=== PATIENT | female | born 1990 | race Two or more races ===

== ENCOUNTER 2024-12-03 09:40 | Inpatient (IN) | payer SELFPAY ==
[~2024-12-03] VITALS: Ht 170.2 cm; Wt 90.9 kg
[2024-12-03 10:18] LABS: BASOPHILS % (AUTO) 0.6 % (0.0-2.0); EOSINOPHILS % (AUTO) 0.1 % (1.0-6.0); HEMATOCRIT 39.3 % (36-46); HEMOGLOBIN 12.4 g/dL (12.0-16.0); LYMPHOCYTES # (AUTO) 0.7 K/uL (1.0-4.8); LYMPHOCYTES % (AUTO) 3.5 % (22.0-44.0); MEAN CORPUSCULAR HEMOGLOBIN 22.9 pg (26.0-34.0); MEAN CORPUSCULAR HGB CONC 31.4 G/dL (31.0-37.0); MEAN CORPUSCULAR VOLUME 73 fL (80-100); MONOCYTES # (AUTO) 0.5 K/uL (0.1-1.0); MONOCYTES % (AUTO) 2.7 % (2.0-9.0); NEUTROPHILS # (AUTO) 18.2 K/uL (1.8-7.7); PLATELET COUNT (AUTO) 353 K/uL (150-450); RED BLOOD CELL COUNT(AUTO) 5.41 MIL/uL (4.00-5.20); RED CELL DISTRIBUTION WIDTH 18.7 % (11.5-14.5); WHITE BLOOD COUNT (AUTO) 19.6 K/uL (4.5-11.0)
[2024-12-03] MEDS: PROCHLORPERAZINE EDISYLATE 5 MG/ML 2 ML VIAL IVP ONE (10:19)
[2024-12-03] MEDS: KETOROLAC TROMETHAMINE 30 MG/ML VIAL IVP ONE (10:19)
[2024-12-03] MEDS: SODIUM CHLORIDE 0.9% 1,000 ML IV ONE (10:19)
[2024-12-03 10:21] LABS: NEUTROPHILS % (AUTO) 93.1 % (40.0-70.0)
[2024-12-03 10:30] LABS: ANION GAP 21 mmol/L (8-16); CALCIUM, TOTAL 9.4 mg/dL (8.8-10.5); CARBON DIOXIDE 18 mmol/L (22-29); CHLORIDE 103 mmol/L (98-107); CREATININE 0.92 mg/dL (0.60-1.30); GLOMERULAR FILTR. RATE CALC > 60 mL/min (>60); GLUCOSE,RANDOM 164 mg/dL (70-110); POTASSIUM 3.3 mmol/L (3.5-5.1); SODIUM SERUM 142 mmol/L (136-145); UREA NITROGEN, BLOOD 7 mg/dL (7-18)
[2024-12-03] MEDS: LORazepam 2 MG/ML VIAL IVP ONE ×2 (10:32→14:19)
[2024-12-03] MEDS: SUMAtriptan SUCCINATE 6 MG/0.5 ML VIAL SQ ONE (10:32)
[2024-12-03 10:48] LABS: ALCOHOL, URINE DRUG SCREEN NEGATIVE (NEGATIVE); AMPHET/METH SCREEN,URINE NEGATIVE (NEGATIVE); BARBITURATE SCREEN, URINE NEGATIVE (NEGATIVE); BENZODIAZEPINES SCREEN,URINE NEGATIVE (NEGATIVE); CANNABINOID SCREEN,URINE POSITIVE (NEGATIVE); COCAINE SCREEN,URINE NEGATIVE (NEGATIVE); METHADONE SCREEN, URINE NEGATIVE (NEGATIVE); OPIATE SCREEN,URINE NEGATIVE (NEGATIVE); PHENCYCLIDINE SCREEN,URINE NEGATIVE (NEGATIVE)
[2024-12-03 10:48] LABS: RBC MORPHOLOGY COMMENT ABNORMAL RBC MORPH
[2024-12-03] MEDS ORDERED: DICYCLOMINE HCL 10 MG/ML 2 ML VIAL IM ONE (11:15)
[2024-12-03] MEDS: DiphenhydrAMINE HCL 50 MG/ML VIAL IVP ONE (11:40)
[2024-12-03] MEDS: DICYCLOMINE HCL 10 MG/ML 2 ML VIAL IM ONE (11:40)
[2024-12-03 12:01] LABS: APPEARANCE,URINE CLEAR (CLEAR); BILIRUBIN,URINE NEGATIVE (NEGATIVE); COLOR,URINE LIGHT YELLOW (YELLOW); GLUCOSE, URINE (UA) NEGATIVE (NEGATIVE); KETONES,URINE =>150 mg/dL (NEGATIVE); LEUKOCYTE ESTERASE ,URINE NEGATIVE (NEGATIVE); NITRATE,URINE NEGATIVE (NEGATIVE); OCCULT BLOOD,URINE NEGATIVE (NEGATIVE); PH,URINE 6.5 (5.0-8.0); PROTEIN,URINE 30-70 mg/dL (NEGATIVE); SPECIFIC GRAVITIY, URINE 1.029 (1.003-1.030); UROBILINOGEN,URINE <=1.0 mg/dL (<=1.0)
[2024-12-03] MEDS: PROMETHAZINE HCL 25 MG RECTAL SUPPOSITORY PR ONE (12:08)
[2024-12-03] MEDS ORDERED: IOHEXOL 350 MG/ML 100 ML VIAL ONE (14:24)
[2024-12-03] MEDS ORDERED: SODIUM CHLORIDE 0.9% 100 ML ONE (14:25)
[2024-12-03] MEDS: POTASSIUM CHL 20 MEQ/0.9% NS 1,000 ML IV ONE (15:45)
[2024-12-03] MEDS ORDERED: POTASSIUM CHLORIDE 20 MEQ ER TABLET PO PRN (16:15)
[2024-12-03] MEDS ORDERED: POTASSIUM CHL 10 MEQ/WATER 50 ML IV PRN (16:15)
[2024-12-03] MEDS ORDERED: MAGNESIUM HYDROXIDE SUSPENSION 30 ML UDCUP PO PRN (16:15)
[2024-12-03] MEDS ORDERED: ACETAMINOPHEN 325 MG TABLET PO PRN (16:15)
[2024-12-03 18:00] VITALS: BP 149/82; PULSE 87; RESP 18; TEMP 98.6; O2SAT 100
[2024-12-03] MEDS: MORPHINE SULFATE 2 MG/ML SYRINGE IVP PRN (18:05)
[2024-12-03 20:20] VITALS: BP 127/57; PULSE 95; RESP 18; TEMP 97.7; O2SAT 96
[2024-12-03] MEDS: LORazepam 2 MG/ML VIAL IVP PRN (21:00)
[2024-12-03] MEDS: ONDANSETRON HCL 4 MG/2 ML VIAL IVP PRN (21:00)
[2024-12-04] MEDS: SODIUM CHLORIDE 0.9% 1,000 ML IV ONE (03:10)
[2024-12-04 03:15] VITALS: BP 139/90; PULSE 77; RESP 18; TEMP 97.9; O2SAT 100
[2024-12-04 08:09] VITALS: BP 117/74; PULSE 67; RESP 18; TEMP 98; O2SAT 100
[2024-12-04] MEDS: PANTOPRAZOLE SODIUM 40 MG/VIAL IVP SCH (08:42)
[2024-12-04 12:53] LABS: BASOPHILS % (AUTO) 0.6 % (0.0-2.0); EOSINOPHILS % (AUTO) 0 % (1.0-6.0); HEMATOCRIT 37.4 % (36-46); HEMOGLOBIN 11.8 g/dL (12.0-16.0); LYMPHOCYTES # (AUTO) 1.1 K/uL (1.0-4.8); LYMPHOCYTES % (AUTO) 6.1 % (22.0-44.0); MEAN CORPUSCULAR HEMOGLOBIN 23.2 pg (26.0-34.0); MEAN CORPUSCULAR HGB CONC 31.6 G/dL (31.0-37.0); MEAN CORPUSCULAR VOLUME 73 fL (80-100); MONOCYTES # (AUTO) 0.8 K/uL (0.1-1.0); MONOCYTES % (AUTO) 4.3 % (2.0-9.0); NEUTROPHILS # (AUTO) 15.4 K/uL (1.8-7.7); PLATELET COUNT (AUTO) 230 K/uL (150-450); RED CELL DISTRIBUTION WIDTH 18.9 % (11.5-14.5); WHITE BLOOD COUNT (AUTO) 17.4 K/uL (4.5-11.0)
[2024-12-04 13:10] LABS: RBC MORPHOLOGY COMMENT ABNORMAL RBC MORPH
[2024-12-04] MEDS ORDERED: ONDA-104 PO (14:29)
[2024-12-04 15:43] VITALS: BP 114/71; PULSE 85; RESP 18; TEMP 98.4; O2SAT 100
[2024-12-04] MEDS: RINGERS SOLUTION,LACTATED 1,000 ML IV SCH (19:20)
[2024-12-04 20:05] VITALS: BP 115/52; PULSE 63; RESP 18; TEMP 98.4; O2SAT 100
[2024-12-04] MEDS: POTASSIUM CHLORIDE 20 MEQ ER TABLET PO PRN (20:47)
[2024-12-04] MEDS: RINGERS SOLUTION,LACTATED 500 ML IV ONE (21:03)
[2024-12-04] MEDS: MORPHINE SULFATE 2 MG/ML SYRINGE IVP PRN (21:36)
[2024-12-05] MEDS: ZOLPIDEM TARTRATE 5 MG TABLET PO PRN (03:38)
[2024-12-05 03:43] VITALS: BP 133/99; PULSE 87; RESP 20; TEMP 97.8; O2SAT 99
[2024-12-05] MEDS: PROCHLORPERAZINE MALEATE 25 MG RECTAL SUPPOSITORY PR ONE (04:12)
[2024-12-05] MEDS: MORPHINE SULFATE 2 MG/ML SYRINGE IVP ONE (06:02)
[2024-12-05] MEDS: LORazepam 2 MG/ML VIAL IVP ONE (06:14)
[2024-12-05 08:00] VITALS: BP 119/59; PULSE 65; RESP 20; TEMP 98.4; O2SAT 100
[2024-12-05] MEDS ORDERED: SODIUM CHLORIDE 0.9% 250 ML IV ONE ×3 (10:32→14:59)
[2024-12-05] MEDS: POTASSIUM CHL 10 MEQ/WATER 50 ML IV PRN (11:01)
[2024-12-05] MEDS ORDERED: LORazepam 2 MG/ML VIAL IVP SCH (16:00)
[2024-12-05] MEDS ORDERED: PANTOPRAZOLE SODIUM 40 MG/VIAL IVP SCH (21:00)
== END 2024-12-05 15:25 | disposition left against medical advice (07) | DRG 103 ==
LOC: EMS 09:40 → EDH 16:04 → 4E 17:50
PROVIDERS: ADMIT Internal Medicine; ATTEND Internal Medicine
DX: G43.D1 Abdominal migraine, intractable (principal); K44.9 Diaphragmatic hernia without obstruction or gangrene; E66.9 Obesity, unspecified; F41.1 Generalized anxiety disorder; Z53.21 Procedure and treatment not carried out due to patient leaving prior to being seen by health care provider; K76.0 Fatty (change of) liver, not elsewhere classified; E87.6 Hypokalemia; D72.829 Elevated white blood cell count, unspecified; Z88.8 Allergy status to other drugs, medicaments and biological substances; Z68.31 Body mass index [BMI] 31.0-31.9, adult
CPT/HCPCS: 74018; 74177; 80048; 80307; 81003; 82009; 84132; 84703; 85025; 93005; 96361; 96365; 96372; 96375; 99285; G0378; J0500; J0780; J1200; J1885; J2060; J2270; J2405; J2470; J3030; J3480; J7030; J7050; J7120; 36415-L1; 36415-TC

== ENCOUNTER 2024-12-12 08:39 | Emergency (ER) | payer MEDICAID ==
[~2024-12-12] VITALS: Ht 170.2 cm; Wt 90.0 kg
[~2024-12-12 08:39] MED LIST: ONDA-104 PO
[2024-12-12 08:53] VITALS: TEMP 97.8
[2024-12-12] MEDS: ONDANSETRON HCL 4 MG/2 ML VIAL IVP ONE (09:11)
[2024-12-12] MEDS: LORazepam 2 MG/ML VIAL IVP ONE ×2 (09:11→13:54)
[2024-12-12] MEDS: KETOROLAC TROMETHAMINE 30 MG/ML VIAL IVP ONE (09:12)
[2024-12-12 09:21] LABS: BASOPHILS % (AUTO) 0.5 % (0.0-2.0); EOSINOPHILS % (AUTO) 0.2 % (1.0-6.0); HEMATOCRIT 40.9 % (36-46); HEMOGLOBIN 12.9 g/dL (12.0-16.0); LYMPHOCYTES # (AUTO) 1.1 K/uL (1.0-4.8); LYMPHOCYTES % (AUTO) 8.6 % (22.0-44.0); MEAN CORPUSCULAR HEMOGLOBIN 22.9 pg (26.0-34.0); MEAN CORPUSCULAR HGB CONC 31.5 G/dL (31.0-37.0); MEAN CORPUSCULAR VOLUME 73 fL (80-100); MONOCYTES # (AUTO) 0.3 K/uL (0.1-1.0); MONOCYTES % (AUTO) 2.4 % (2.0-9.0); NEUTROPHILS # (AUTO) 10.9 K/uL (1.8-7.7); PLATELET COUNT (AUTO) 338 K/uL (150-450); RED BLOOD CELL COUNT(AUTO) 5.63 MIL/uL (4.00-5.20); RED CELL DISTRIBUTION WIDTH 18.6 % (11.5-14.5); WHITE BLOOD COUNT (AUTO) 12.4 K/uL (4.5-11.0)
[2024-12-12 09:22] LABS: NEUTROPHILS % (AUTO) 88.3 % (40.0-70.0)
[2024-12-12 09:33] LABS: ANION GAP 15 mmol/L (8-16); CALCIUM, TOTAL 9.3 mg/dL (8.8-10.5); CARBON DIOXIDE 18 mmol/L (22-29); CHLORIDE 101 mmol/L (98-107); CREATININE 0.75 mg/dL (0.60-1.30); GLOMERULAR FILTR. RATE CALC > 60 mL/min (>60); POTASSIUM 3.8 mmol/L (3.5-5.1); SODIUM SERUM 134 mmol/L (136-145)
[2024-12-12 09:38] LABS: GLUCOSE,RANDOM 184 mg/dL (70-110); UREA NITROGEN, BLOOD 6 mg/dL (7-18)
[2024-12-12 09:53] LABS: RBC MORPHOLOGY COMMENT ABNORMAL RBC MORPH
[2024-12-12] MEDS: DiphenhydrAMINE HCL 50 MG/ML VIAL IVP ONE ×2 (10:01→13:54)
[2024-12-12] MEDS: HALOPERIDOL LACTATE 5 MG/ML VIAL IVP ONE (10:01)
[2024-12-12 11:39] LABS: COVID AG,FIA SOURCE NASAL SWAB
[2024-12-12 12:06] LABS: SARS-COV2 (COVID) ANTIGEN,FIA Negative (Negative)
[2024-12-12 12:26] LABS: APPEARANCE,URINE CLEAR (CLEAR); BILIRUBIN,URINE NEGATIVE (NEGATIVE); COLOR,URINE LIGHT YELLOW (YELLOW); GLUCOSE, URINE (UA) 150-200 mg/dL (NEGATIVE); KETONES,URINE 80-100 mg/dL (NEGATIVE); LEUKOCYTE ESTERASE ,URINE NEGATIVE (NEGATIVE); NITRATE,URINE NEGATIVE (NEGATIVE); OCCULT BLOOD,URINE NEGATIVE (NEGATIVE); PROTEIN,URINE 30-70 mg/dL (NEGATIVE); SPECIFIC GRAVITIY, URINE 1.026 (1.003-1.030); UROBILINOGEN,URINE <=1.0 mg/dL (<=1.0)
[2024-12-12 12:31] LABS: BACTERIA,URINE None Seen /HPF (None Seen)
[2024-12-12 12:32] LABS: RBC,URINE 0-2 /HPF (0-2); WBC,URINE 0-2 /HPF (0-5)
[2024-12-12 14:04] VITALS: BP 132/73; PULSE 97; RESP 18; O2SAT 95
[2024-12-12 15:39] LABS: ALCOHOL, URINE DRUG SCREEN NEGATIVE (NEGATIVE); AMPHET/METH SCREEN,URINE NEGATIVE (NEGATIVE); BARBITURATE SCREEN, URINE NEGATIVE (NEGATIVE); BENZODIAZEPINES SCREEN,URINE NEGATIVE (NEGATIVE); CANNABINOID SCREEN,URINE POSITIVE (NEGATIVE); COCAINE SCREEN,URINE NEGATIVE (NEGATIVE); METHADONE SCREEN, URINE NEGATIVE (NEGATIVE); OPIATE SCREEN,URINE NEGATIVE (NEGATIVE); PHENCYCLIDINE SCREEN,URINE NEGATIVE (NEGATIVE)
== END 2024-12-12 14:08 | disposition home or self-care (01) ==
LOC: EMS 08:46
DX: F12.10 Cannabis abuse, uncomplicated (principal); R11.2 Nausea with vomiting, unspecified; F41.9 Anxiety disorder, unspecified; Z72.89 Other problems related to lifestyle; Z20.822 Contact with and (suspected) exposure to COVID-19
CPT/HCPCS: 99285; 96374; 96375; 87426; 80048; 81001; 85025; 36415; 96376; 80307; J1885; J1200; J1630; J2060; J2405

== ENCOUNTER 2024-12-31 07:35 | Emergency (ER) | payer MEDICAID ==
[~2024-12-31] VITALS: Ht 170.2 cm; Wt 90.9 kg
[2024-12-31 07:38] VITALS: TEMP 97.5
[2024-12-31] MEDS: ONDANSETRON HCL 4 MG/2 ML VIAL IVP ONE (08:14)
[2024-12-31] MEDS: SODIUM CHLORIDE 0.9% 1,000 ML IV ONE (08:14)
[2024-12-31 08:23] LABS: BASOPHILS % (AUTO) 0.4 % (0.0-2.0); EOSINOPHILS % (AUTO) 1.4 % (1.0-6.0); HEMATOCRIT 41.3 % (36-46); LYMPHOCYTES # (AUTO) 1.7 K/uL (1.0-4.8); MEAN CORPUSCULAR HEMOGLOBIN 23.5 pg (26.0-34.0); MEAN CORPUSCULAR HGB CONC 31.6 G/dL (31.0-37.0); MEAN CORPUSCULAR VOLUME 75 fL (80-100); MONOCYTES # (AUTO) 0.5 K/uL (0.1-1.0); MONOCYTES % (AUTO) 3.1 % (2.0-9.0); NEUTROPHILS # (AUTO) 13.3 K/uL (1.8-7.7); NEUTROPHILS % (AUTO) 84.1 % (40.0-70.0); PLATELET COUNT (AUTO) 312 K/uL (150-450); RED BLOOD CELL COUNT(AUTO) 5.54 MIL/uL (4.00-5.20); WHITE BLOOD COUNT (AUTO) 15.7 K/uL (4.5-11.0)
[2024-12-31 08:29] LABS: ANION GAP 17 mmol/L (8-16); CALCIUM, TOTAL 9.3 mg/dL (8.8-10.5); CARBON DIOXIDE 20 mmol/L (22-29); CHLORIDE 100 mmol/L (98-107); CREATININE 0.78 mg/dL (0.60-1.30); GLOMERULAR FILTR. RATE CALC > 60 mL/min (>60); GLUCOSE,RANDOM 157 mg/dL (70-110); LIPASE 34 U/L (16-77); POTASSIUM 3.3 mmol/L (3.5-5.1); SODIUM SERUM 137 mmol/L (136-145); UREA NITROGEN, BLOOD 3 mg/dL (7-18)
[2024-12-31] MEDS: DiphenhydrAMINE HCL 50 MG/ML VIAL IVP ONE ×2 (08:49→09:50)
[2024-12-31] MEDS: LORazepam 2 MG/ML VIAL IVP ONE ×2 (08:49→09:12)
[2024-12-31] MEDS: HALOPERIDOL LACTATE 5 MG/ML VIAL IVP ONE ×2 (08:49→09:12)
[2024-12-31 09:01] LABS: RBC MORPHOLOGY COMMENT ABNORMAL RBC MORPH
[2024-12-31] MEDS: BENZTROPINE MESYLATE 2 MG TABLET PO ONE (09:48)
[2024-12-31 10:37] LABS: APPEARANCE,URINE HAZY (CLEAR); BILIRUBIN,URINE NEGATIVE (NEGATIVE); COLOR,URINE LIGHT YELLOW (YELLOW); GLUCOSE, URINE (UA) TRACE mg/dL (NEGATIVE); KETONES,URINE NEGATIVE (NEGATIVE); LEUKOCYTE ESTERASE ,URINE MODERATE (NEGATIVE); NITRATE,URINE NEGATIVE (NEGATIVE); OCCULT BLOOD,URINE NEGATIVE (NEGATIVE); PROTEIN,URINE 30-70 mg/dL (NEGATIVE); SPECIFIC GRAVITIY, URINE 1.015 (1.003-1.030); UROBILINOGEN,URINE <=1.0 mg/dL (<=1.0)
[2024-12-31] MEDS: POTASSIUM CHLORIDE 20 MEQ ER TABLET PO ONE (11:11)
[2024-12-31 12:16] LABS: RBC,URINE 0-2 /HPF (0-2)
[2024-12-31 12:17] LABS: BACTERIA,URINE Moderate /HPF (None Seen); SQUAMOUS EPITHELIAL CELL,UR Many /LPF (None Seen)
[2024-12-31] MEDS: KETOROLAC TROMETHAMINE 30 MG/ML VIAL IVP ONE (13:06)
[2024-12-31] MEDS ORDERED: LORA1TAB25 PO (14:44)
[2024-12-31 14:55] VITALS: BP 114/71; PULSE 79; RESP 14; O2SAT 100
== END 2024-12-31 15:35 | disposition home or self-care (01) ==
LOC: EMS 07:36
DX: F32.9 Major depressive disorder, single episode, unspecified (principal); G43.D1 Abdominal migraine, intractable; F41.9 Anxiety disorder, unspecified; F12.90 Cannabis use, unspecified, uncomplicated
CPT/HCPCS: 99285; 96374; 96375; 96361; 80048; 81001; 83690; 84703; 85025; 87086; 36415; 96376; J1885; J1200; J1630; J2060; J2405; J7030

== ENCOUNTER 2025-01-13 08:46 | Emergency (ER) | payer MEDICAID ==
[~2025-01-13] VITALS: Ht 165.1 cm; Wt 90.9 kg
[~2025-01-13 08:46] MED LIST changes: +LORA1TAB25 PO; -ONDA-104 PO
[2025-01-13] MEDS: LORazepam 2 MG/ML VIAL IVP ONE (09:30)
[2025-01-13] MEDS: SODIUM CHLORIDE 0.9% 1,000 ML IV ONE (09:30)
[2025-01-13] MEDS: ONDANSETRON HCL 4 MG/2 ML VIAL IVP ONE (09:30)
[2025-01-13 09:44] LABS: APPEARANCE,URINE HAZY (CLEAR); BILIRUBIN,URINE NEGATIVE (NEGATIVE); COLOR,URINE YELLOW (YELLOW); GLUCOSE, URINE (UA) TRACE mg/dL (NEGATIVE); KETONES,URINE 40-60 mg/dL (NEGATIVE); LEUKOCYTE ESTERASE ,URINE LARGE (NEGATIVE); NITRATE,URINE NEGATIVE (NEGATIVE); OCCULT BLOOD,URINE NEGATIVE (NEGATIVE); PROTEIN,URINE 30-70 mg/dL (NEGATIVE); SPECIFIC GRAVITIY, URINE 1.025 (1.003-1.030); UROBILINOGEN,URINE <=1.0 mg/dL (<=1.0)
[2025-01-13 09:51] LABS: ALCOHOL, URINE DRUG SCREEN NEGATIVE (NEGATIVE); AMPHET/METH SCREEN,URINE NEGATIVE (NEGATIVE); BARBITURATE SCREEN, URINE NEGATIVE (NEGATIVE); BENZODIAZEPINES SCREEN,URINE NEGATIVE (NEGATIVE); CANNABINOID SCREEN,URINE POSITIVE (NEGATIVE); COCAINE SCREEN,URINE NEGATIVE (NEGATIVE); METHADONE SCREEN, URINE NEGATIVE (NEGATIVE); OPIATE SCREEN,URINE NEGATIVE (NEGATIVE); PHENCYCLIDINE SCREEN,URINE NEGATIVE (NEGATIVE)
[2025-01-13 10:20] LABS: BACTERIA,URINE Moderate /HPF (None Seen); RBC,URINE None Seen /HPF (0-2); SQUAMOUS EPITHELIAL CELL,UR Many /LPF (None Seen)
[2025-01-13 11:05] LABS: ANION GAP 18 mmol/L (8-16); CALCIUM, TOTAL 9.1 mg/dL (8.8-10.5); CARBON DIOXIDE 19 mmol/L (22-29); CHLORIDE 101 mmol/L (98-107); CREATININE 0.89 mg/dL (0.60-1.30); GLOMERULAR FILTR. RATE CALC > 60 mL/min (>60); GLUCOSE,RANDOM 162 mg/dL (70-110); POTASSIUM 3.4 mmol/L (3.5-5.1); SODIUM SERUM 138 mmol/L (136-145); UREA NITROGEN, BLOOD 9 mg/dL (7-18)
[2025-01-13 11:07] LABS: ALBUMIN 3.7 g/dL (3.4-5.0); BASOPHILS % (AUTO) 0.2 % (0.0-2.0); BILIRUBIN,DIRECT 0.3 mg/dL (0.00-0.20); BILIRUBIN,TOTAL 1.5 mg/dL (0.1-1.0); EOSINOPHILS % (AUTO) 0 % (1.0-6.0); HEMATOCRIT 38.8 % (36-46); HEMOGLOBIN 12.6 g/dL (12.0-16.0); LYMPHOCYTES % (AUTO) 5.5 % (22.0-44.0); MEAN CORPUSCULAR HEMOGLOBIN 23.7 pg (26.0-34.0); MEAN CORPUSCULAR HGB CONC 32.5 G/dL (31.0-37.0); MEAN CORPUSCULAR VOLUME 73 fL (80-100); MONOCYTES # (AUTO) 0.4 K/uL (0.1-1.0); MONOCYTES % (AUTO) 2.4 % (2.0-9.0); NEUTROPHILS # (AUTO) 16.2 K/uL (1.8-7.7); PLATELET COUNT (AUTO) 337 K/uL (150-450); RED BLOOD CELL COUNT(AUTO) 5.33 MIL/uL (4.00-5.20); RED CELL DISTRIBUTION WIDTH 19.2 % (11.5-14.5); TOTAL PROTEIN, SERUM 7.4 g/dL (6.4-8.2); WHITE BLOOD COUNT (AUTO) 17.6 K/uL (4.5-11.0)
[2025-01-13 11:08] LABS: NEUTROPHILS % (AUTO) 91.9 % (40.0-70.0)
[2025-01-13 11:11] LABS: HCG,QUANTITATIVE < 1 mIU/mL (0-6); LIPASE 25 U/L (16-77)
[2025-01-13 12:06] LABS: RBC MORPHOLOGY COMMENT ABNORMAL RBC MORPH
[2025-01-13] MEDS: HALOPERIDOL LACTATE 5 MG/ML VIAL IM ONE (12:43)
[2025-01-13] MEDS: DiphenhydrAMINE HCL 50 MG/ML VIAL IVP ONE (12:44)
[2025-01-13 13:51] VITALS: TEMP 97.9
[2025-01-13 14:00] VITALS: BP 116/70; PULSE 65; RESP 20; O2SAT 97
== END 2025-01-13 14:01 | disposition home or self-care (01) ==
LOC: EMS 08:46
DX: R11.2 Nausea with vomiting, unspecified (principal); F12.10 Cannabis abuse, uncomplicated; F32.A Depression, unspecified; F41.9 Anxiety disorder, unspecified; Z72.89 Other problems related to lifestyle
CPT/HCPCS: 99285; 96374; 76700; 96375; 96361; 80048; 80076; 81001; 83690; 84702; 85025; 87086; 36415; 96372; 80307; J1200; J1630; J2060; J2405; J7030

== ENCOUNTER 2025-04-30 09:46 | Emergency (ER) | payer OTHER ==
[~2025-04-30] VITALS: Ht 170.2 cm; Wt 90.9 kg
[2025-04-30 09:48] VITALS: TEMP 98.2
[2025-04-30 10:12] LABS: PLATELET COUNT (AUTO) 358 K/uL (150-450); RED BLOOD CELL COUNT(AUTO) 5.03 MIL/uL (4.00-5.20); RED CELL DISTRIBUTION WIDTH 15.8 % (11.5-14.5); WHITE BLOOD COUNT (AUTO) 12.4 K/uL (4.5-11.0)
[2025-04-30 10:20] LABS: CALCIUM, TOTAL 9.0 mg/dL (8.8-10.5); CREATININE 0.93 mg/dL (0.60-1.30); GLOMERULAR FILTR. RATE CALC > 60 mL/min (>60); GLUCOSE,RANDOM 182 mg/dL (70-110); SODIUM SERUM 137 mmol/L (136-145); UREA NITROGEN, BLOOD 8 mg/dL (7-18)
[2025-04-30] MEDS: SODIUM CHLORIDE 0.9% 2,750 ML IV ONE (10:31)
[2025-04-30] MEDS: ONDANSETRON HCL 4 MG/2 ML VIAL IVP ONE (10:32)
[2025-04-30] MEDS: LORazepam 2 MG/ML VIAL IVP ONE (10:32)
[2025-04-30 10:37] LABS: RBC MORPHOLOGY COMMENT ABNORMAL RBC MORPH
[2025-04-30] MEDS: MORPHINE SULFATE 2 MG/ML SYRINGE IVP ONE (11:51)
[2025-04-30 12:52] VITALS: BP 128/79; PULSE 81; RESP 20; O2SAT 98
[2025-04-30] MEDS ORDERED: LORA1TAB25 PO (12:56)
[2025-04-30] MEDS: POTASSIUM CITRATE 5 MEQ ER TABLET PO ONE (13:07)
== END 2025-04-30 13:16 | disposition home or self-care (01) ==
LOC: EMS 10:09
DX: G43.D0 Abdominal migraine, not intractable (principal); F12.10 Cannabis abuse, uncomplicated; F41.9 Anxiety disorder, unspecified; F32.A Depression, unspecified; Z79.899 Other long term (current) drug therapy; Z88.5 Allergy status to narcotic agent
CPT/HCPCS: 99284; 96374; 96375; 96361; 71045; 80048; 85025; 36415; 96376; J1200; J1630; J2060; J2270; J2405; J7030

== ENCOUNTER 2025-05-10 15:59 | Emergency (ER) | payer OTHER ==
[~2025-05-10] VITALS: Ht 170.2 cm; Wt 67.0 kg
[2025-05-10 16:16] VITALS: TEMP 98
[2025-05-10] MEDS ORDERED: DIPH50CA37 PO (17:03)
[2025-05-10] MEDS ORDERED: PRED-554 PO (17:03)
[2025-05-10 17:21] VITALS: BP 118/71; PULSE 85; RESP 16; O2SAT 99
== END 2025-05-10 17:23 | disposition home or self-care (01) ==
LOC: EMS 15:59
DX: T78.1XXA Other adverse food reactions, not elsewhere classified, initial encounter (principal); F41.9 Anxiety disorder, unspecified; Z88.8 Allergy status to other drugs, medicaments and biological substances; Z79.899 Other long term (current) drug therapy; X58.XXXA Exposure to other specified factors, initial encounter
CPT/HCPCS: 99283; J7512

== ENCOUNTER 2025-05-17 07:36 | Emergency (ER) | payer OTHER ==
[~2025-05-17] VITALS: Ht 170.2 cm; Wt 90.9 kg
[~2025-05-17 07:36] MED LIST changes: +DIPH50CA37 PO; +PRED-554 PO
[2025-05-17] MEDS ORDERED: BUSP10TA3 PO (07:41)
[2025-05-17] MEDS ORDERED: CITA-144 PO (07:41)
[2025-05-17 08:20] LABS: PLATELET COUNT (AUTO) 372 K/uL (150-450); RED BLOOD CELL COUNT(AUTO) 5.14 MIL/uL (4.00-5.20); RED CELL DISTRIBUTION WIDTH 15.6 % (11.5-14.5); WHITE BLOOD COUNT (AUTO) 17.3 K/uL (4.5-11.0)
[2025-05-17 08:32] LABS: CALCIUM, TOTAL 9.1 mg/dL (8.8-10.5); CREATININE 0.79 mg/dL (0.60-1.30); GLOMERULAR FILTR. RATE CALC > 60 mL/min (>60); GLUCOSE,RANDOM 175 mg/dL (70-110); SODIUM SERUM 135 mmol/L (136-145); UREA NITROGEN, BLOOD 7 mg/dL (7-18)
[2025-05-17 08:41] LABS: ASPARTATE AMINOTRANSFERASE 15 U/L (15-37); HCG,QUANTITATIVE < 1 mIU/mL (0-6); TOTAL PROTEIN, SERUM 7.3 g/dL (6.4-8.2)
[2025-05-17] MEDS: LORazepam 2 MG/ML VIAL IVP ONE (08:42)
[2025-05-17] MEDS: SODIUM CHLORIDE 0.9% 1,000 ML IV ONE (08:42)
[2025-05-17] MEDS: FAMOTIDINE 20 MG/2 ML VIAL IVP ONE (08:58)
[2025-05-17] MEDS: KETOROLAC TROMETHAMINE 30 MG/ML VIAL IVP ONE (08:58)
[2025-05-17] MEDS: PROCHLORPERAZINE EDISYLATE 5 MG/ML 2 ML VIAL IVP ONE (09:12)
[2025-05-17 09:23] LABS: RBC MORPHOLOGY COMMENT ABNORMAL RBC MORPH
[2025-05-17] MEDS: DIAZEPAM 5 MG/ML 2 ML SYRINGE IVP ONE (10:18)
[2025-05-17] MEDS: MAGNESIUM SULFATE 2 GM/WATER 50 ML IV ONE (10:48)
[2025-05-17 11:50] VITALS: BP 118/71; PULSE 75; RESP 21; TEMP 98.2; O2SAT 100
[2025-05-17] MEDS ORDERED: METH-812 PO (11:55)
== END 2025-05-17 12:12 | disposition home or self-care (01) ==
LOC: EMS 07:36
DX: G43.D0 Abdominal migraine, not intractable (principal); R11.2 Nausea with vomiting, unspecified; F41.9 Anxiety disorder, unspecified; F32.A Depression, unspecified; R10.2 Pelvic and perineal pain; Z88.8 Allergy status to other drugs, medicaments and biological substances; Z79.899 Other long term (current) drug therapy
CPT/HCPCS: 99285; 96365; 96361; 96366; 80048; 80076; 83690; 83735; 84702; 85025; 36415; 93005; 96375; J1885 ×2; J1200; J3490; J1630; J2060; J0780; J7030; J3475

== ENCOUNTER 2025-05-21 07:11 | Emergency (ER) | payer OTHER ==
[~2025-05-21] VITALS: Ht 170.2 cm; Wt 90.0 kg
[~2025-05-21 07:11] MED LIST changes: +BUSP10TA3 PO; +CITA-144 PO; -DIPH50CA37 PO; -LORA1TAB25 PO; +METH-812 PO; -PRED-554 PO
[2025-05-21] MEDS: SODIUM CHLORIDE 0.9% 1,000 ML IV ONE (07:45)
[2025-05-21] MEDS ORDERED: ONDANSETRON HCL 4 MG/2 ML VIAL IVP ONE (07:45)
[2025-05-21] MEDS: LORazepam 2 MG/ML VIAL IM ONE (08:01)
[2025-05-21] MEDS ORDERED: SODIUM CHLORIDE 0.9% 100 ML ONE (08:04)
[2025-05-21] MEDS ORDERED: IOHEXOL 350 MG/ML 100 ML VIAL ONE (08:04)
[2025-05-21 08:22] LABS: ASPARTATE AMINOTRANSFERASE 19 U/L (15-37); HCG,QUANTITATIVE < 1 mIU/mL (0-6); TOTAL PROTEIN, SERUM 7.8 g/dL (6.4-8.2)
[2025-05-21 08:25] LABS: CALCIUM, TOTAL 9.3 mg/dL (8.8-10.5); CREATININE 0.80 mg/dL (0.60-1.30); GLOMERULAR FILTR. RATE CALC > 60 mL/min (>60); SODIUM SERUM 136 mmol/L (136-145)
[2025-05-21 08:26] LABS: GLUCOSE,RANDOM 137 mg/dL (70-110); UREA NITROGEN, BLOOD 8 mg/dL (7-18)
[2025-05-21 08:38] LABS: APPEARANCE,URINE HAZY (CLEAR); GLUCOSE, URINE (UA) NEGATIVE (NEGATIVE); LEUKOCYTE ESTERASE ,URINE MODERATE (NEGATIVE); NITRATE,URINE NEGATIVE (NEGATIVE); OCCULT BLOOD,URINE NEGATIVE (NEGATIVE); PH,URINE DRUG SCREEN 6.5 (5.0-8.0); SPECIFIC GRAVITIY, URINE 1.028 (1.003-1.030)
[2025-05-21 08:46] LABS: ALCOHOL, URINE DRUG SCREEN NEGATIVE (NEGATIVE); AMPHET/METH SCREEN,URINE NEGATIVE (NEGATIVE); BARBITURATE SCREEN, URINE NEGATIVE (NEGATIVE); CANNABINOID SCREEN,URINE POSITIVE (NEGATIVE); COCAINE SCREEN,URINE NEGATIVE (NEGATIVE); METHADONE SCREEN, URINE NEGATIVE (NEGATIVE)
[2025-05-21 09:07] LABS: SQUAMOUS EPITHELIAL CELL,UR Moderate /LPF (None Seen)
[2025-05-21 09:12] LABS: PLATELET COUNT (AUTO) 353 K/uL (150-450); RED BLOOD CELL COUNT(AUTO) 5.03 MIL/uL (4.00-5.20); RED CELL DISTRIBUTION WIDTH 15.5 % (11.5-14.5); WHITE BLOOD COUNT (AUTO) 12.2 K/uL (4.5-11.0)
[2025-05-21 09:35] LABS: RBC MORPHOLOGY COMMENT ABNORMAL RBC MORPH
[2025-05-21] MEDS ORDERED: POTASSIUM CHLORIDE 20 MEQ ER TABLET PO ONE (13:30)
[2025-05-21 13:31] VITALS: BP 175/97; PULSE 89; RESP 19; TEMP 98.3; O2SAT 99
== END 2025-05-21 13:31 | disposition home or self-care (01) ==
LOC: EMS 07:29
DX: F12.10 Cannabis abuse, uncomplicated (principal); F41.9 Anxiety disorder, unspecified; N83.291 Other ovarian cyst, right side; N89.8 Other specified noninflammatory disorders of vagina; F32.A Depression, unspecified; Z97.5 Presence of (intrauterine) contraceptive device; Z79.899 Other long term (current) drug therapy
CPT/HCPCS: 99285; 74177; 96360; 76856; 80048; 80076; 81001; 83690; 84702; 85025; 87086; 36415; 96372; 80307; Q9967; J1200; J1630; J2060; J7030; J7050; J2405

== ENCOUNTER 2025-06-02 09:40 | Emergency (ER) | payer OTHER ==
[~2025-06-02] VITALS: Ht 170.2 cm; Wt 90.0 kg
[2025-06-02 09:59] VITALS: TEMP 98.8
[2025-06-02 10:28] LABS: APPEARANCE,URINE HAZY (CLEAR); GLUCOSE, URINE (UA) TRACE mg/dL (NEGATIVE); LEUKOCYTE ESTERASE ,URINE SMALL (NEGATIVE); NITRATE,URINE NEGATIVE (NEGATIVE); OCCULT BLOOD,URINE LARGE (NEGATIVE); SPECIFIC GRAVITIY, URINE 1.034 (1.003-1.030)
[2025-06-02 10:59] LABS: SULFOSALICYLIC ACID,URINE 2+ (Negative)
[2025-06-02 11:00] LABS: SQUAMOUS EPITHELIAL CELL,UR Few /LPF (None Seen)
[2025-06-02] MEDS: SODIUM CHLORIDE 0.9% 1,000 ML IV ONE (11:00)
[2025-06-02] MEDS: LORazepam 2 MG/ML VIAL IVP ONE (11:01)
[2025-06-02 11:05] LABS: ALCOHOL, URINE DRUG SCREEN NEGATIVE (NEGATIVE); AMPHET/METH SCREEN,URINE NEGATIVE (NEGATIVE); BARBITURATE SCREEN, URINE NEGATIVE (NEGATIVE); CANNABINOID SCREEN,URINE POSITIVE (NEGATIVE); COCAINE SCREEN,URINE NEGATIVE (NEGATIVE); METHADONE SCREEN, URINE NEGATIVE (NEGATIVE)
[2025-06-02 11:08] LABS: PLATELET COUNT (AUTO) 358 K/uL (150-450); RED BLOOD CELL COUNT(AUTO) 5.15 MIL/uL (4.00-5.20); RED CELL DISTRIBUTION WIDTH 15.9 % (11.5-14.5); WHITE BLOOD COUNT (AUTO) 16.4 K/uL (4.5-11.0)
[2025-06-02 11:09] LABS: RBC MORPHOLOGY COMMENT ABNORMAL RBC MORPH
[2025-06-02 11:18] LABS: PH,URINE DRUG SCREEN 6.0 (5.0-8.0)
[2025-06-02 11:20] LABS: CALCIUM, TOTAL 9.5 mg/dL (8.8-10.5); CREATININE 0.71 mg/dL (0.60-1.30); GLOMERULAR FILTR. RATE CALC > 60 mL/min (>60); GLUCOSE,RANDOM 153 mg/dL (70-110)
[2025-06-02 11:24] LABS: SODIUM SERUM 135 mmol/L (136-145); UREA NITROGEN, BLOOD 10 mg/dL (7-18)
[2025-06-02 11:29] LABS: HCG,QUANTITATIVE < 1 mIU/mL (0-6)
[2025-06-02] MEDS: KETOROLAC TROMETHAMINE 30 MG/ML VIAL IVP ONE (12:58)
[2025-06-02] MEDS: CefTRIAXone 1 GM/DEXTROSE 50 ML IV ONE (12:58)
[2025-06-02 12:59] VITALS: BP 96/62; PULSE 83; RESP 16; O2SAT 98
== END 2025-06-02 14:09 | disposition home or self-care (01) ==
LOC: EMS 09:40
DX: G43.D0 Abdominal migraine, not intractable (principal); F12.10 Cannabis abuse, uncomplicated; F32.A Depression, unspecified; N89.8 Other specified noninflammatory disorders of vagina; F41.9 Anxiety disorder, unspecified; N91.2 Amenorrhea, unspecified; Z79.899 Other long term (current) drug therapy; Z88.5 Allergy status to narcotic agent
CPT/HCPCS: 99284; 96365; 96375; 80048; 81001; 83690; 84702; 85025; 36415; 80307; J1885; J0696; J1200; J1630; J2060; J7030; 81002

== ENCOUNTER 2025-06-27 07:32 | Inpatient (IN) | payer OTHER ==
[~2025-06-27] VITALS: Ht 170.2 cm; Wt 91.0 kg
[2025-06-27] MEDS ORDERED: IOHEXOL 350 MG/ML 100 ML VIAL ONE (08:07)
[2025-06-27] MEDS ORDERED: SODIUM CHLORIDE 0.9% 100 ML ONE (08:07)
[2025-06-27 08:18] LABS: PLATELET COUNT (AUTO) 356 K/uL (150-450); RBC MORPHOLOGY COMMENT ABNORMAL RBC MORPH; RED BLOOD CELL COUNT(AUTO) 4.98 MIL/uL (4.00-5.20); RED CELL DISTRIBUTION WIDTH 17.2 % (11.5-14.5); WHITE BLOOD COUNT (AUTO) 14.4 K/uL (4.5-11.0)
[2025-06-27 08:22] LABS: CALCIUM, TOTAL 9.0 mg/dL (8.8-10.5); CREATININE 0.86 mg/dL (0.60-1.30); GLOMERULAR FILTR. RATE CALC > 60 mL/min (>60); GLUCOSE,RANDOM 166 mg/dL (70-110); SODIUM SERUM 140 mmol/L (136-145); UREA NITROGEN, BLOOD 7 mg/dL (7-18)
[2025-06-27] MEDS: LORazepam 2 MG/ML VIAL IVP ONE (08:26)
[2025-06-27] MEDS: ONDANSETRON HCL 4 MG/2 ML VIAL IVP ONE (08:27)
[2025-06-27 08:28] LABS: ASPARTATE AMINOTRANSFERASE 19.0 U/L (15-37); TOTAL PROTEIN, SERUM 8.1 g/dL (6.4-8.2)
[2025-06-27] MEDS: MORPHINE SULFATE 2 MG/ML SYRINGE IVP ONE ×2 (09:14→10:29)
[2025-06-27] MEDS ORDERED: ACETAMINOPHEN 325 MG TABLET PO PRN (12:00)
[2025-06-27] MEDS ORDERED: NALOXONE HCL 1 MG/ML 2 ML SYRINGE IVP PRN (12:15)
[2025-06-27] MEDS: ONDANSETRON HCL 4 MG/2 ML VIAL IVP PRN (12:56)
[2025-06-27] MEDS: DEXTROSE 5%-LACTATED RINGERS 1,000 ML IV SCH (12:59)
[2025-06-27 15:50] VITALS: BP 130/65; PULSE 76; RESP 20; TEMP 98.6; O2SAT 100
[2025-06-27] MEDS: HEPARIN SODIUM,PORCINE 5,000 UNITS/ML VIAL SQ SCH (17:22)
[2025-06-27 19:19] VITALS: BP 129/71; PULSE 78; RESP 18; TEMP 98.8; O2SAT 100
[2025-06-27] MEDS: DOCUSATE SODIUM 100 MG CAPSULE PO SCH (20:03)
[2025-06-27] MEDS: LORazepam 2 MG/ML VIAL IVP PRN (20:56)
[2025-06-28 03:42] VITALS: BP 99/65; PULSE 84; RESP 18; TEMP 98.1; O2SAT 100
[2025-06-28 07:07] LABS: PLATELET COUNT (AUTO) 264 K/uL (150-450); RED BLOOD CELL COUNT(AUTO) 4.46 MIL/uL (4.00-5.20); RED CELL DISTRIBUTION WIDTH 16.8 % (11.5-14.5); WHITE BLOOD COUNT (AUTO) 11.8 K/uL (4.5-11.0)
[2025-06-28 07:18] LABS: CALCIUM, TOTAL 8.6 mg/dL (8.8-10.5); CREATININE 0.55 mg/dL (0.60-1.30); GLOMERULAR FILTR. RATE CALC > 60 mL/min (>60); GLUCOSE,RANDOM 95 mg/dL (70-110); SODIUM SERUM 139 mmol/L (136-145); UREA NITROGEN, BLOOD 5 mg/dL (7-18)
[2025-06-28 08:13] VITALS: BP 107/51; PULSE 81; RESP 18; TEMP 98.4; O2SAT 100
[2025-06-28 08:41] LABS: RBC MORPHOLOGY COMMENT ABNORMAL RBC MORPH
[2025-06-28] MEDS ORDERED: POTASSIUM CHLORIDE 20 MEQ ER TABLET PO PRN (09:45)
[2025-06-28] MEDS ORDERED: POTASSIUM CHL 10 MEQ/WATER 50 ML IV PRN (09:45)
== END 2025-06-28 12:20 | disposition left against medical advice (07) | DRG 249 ==
LOC: EMS 07:34 → EDH 11:13 → 6N 12:30
PROVIDERS: ADMIT Internal Medicine; ATTEND Internal Medicine
DX: K52.89 Other specified noninfective gastroenteritis and colitis (principal); R16.0 Hepatomegaly, not elsewhere classified; R65.11 Systemic inflammatory response syndrome (SIRS) of non-infectious origin with acute organ dysfunction; E86.0 Dehydration; R10.84 Generalized abdominal pain; R11.16 Cannabis hyperemesis syndrome; R11.2 Nausea with vomiting, unspecified; E87.6 Hypokalemia; F32.A Depression, unspecified; F41.9 Anxiety disorder, unspecified; G43.D0 Abdominal migraine, not intractable; Z53.29 Procedure and treatment not carried out because of patient's decision for other reasons; E66.9 Obesity, unspecified; Z68.31 Body mass index [BMI] 31.0-31.9, adult; Z88.8 Allergy status to other drugs, medicaments and biological substances
CPT/HCPCS: 74177; 80048; 80076; 83690; 83735; 84703; 85025; 96374; 96375; 96376; 99285; J1171; J1200; J1644; J2060; J2270; J2405; J7050